=== PATIENT | female | born 1965 | race Caucasian/White ===

== ENCOUNTER 2018-05-19 06:04 | Observation (INO) | payer SELFPAY ==
[2018-05-19] MEDS ORDERED: NS 0.9% 1000 ML** 1,000 ML IV ONE ×2 (06:07→09:06)
[2018-05-19] MEDS ORDERED: Ondansetron INJ* 2 MG/ML VIAL IV ONE (06:07)
[2018-05-19] MEDS ORDERED: Ketorolac INJ* 30 MG/ML 1 ML VIAL IV PUSH ONE (06:11)
--- NOTE | 2018-05-19 06:12 | ED ---
Back Pain - HPI Summary HPI Summary: Pt. is a 52 y.o female who presents to the ER for left flank pain and vomiting that started acutely this morning. Pt. states she has passed kidney stones in the past and symptoms are similar today. Pt. notes pain to left flank that radiates to pelvis. She denies dysuria, hematuria, fever, CP, SOB. Hx of hypothyroidism. Sxs are moderate in severity. No current modifying factors. - History of Current Complaint Stated Complaint: FLANK PAIN Time Seen by Provider: 05/19/18 06:06 Hx Obtained From: Patient Hx Last Menstrual Period: 2 weeks ago Pain Intensity: 9 - Allergies/Home Medications Allergies/Adverse Reactions: Allergies Allergy/AdvReac Type Severity Reaction Status Date / Time No Known Allergies Allergy Verified 12/02/16 09:37 PMH/Surg Hx/FS Hx/Imm Hx Previously Healthy: Yes Endocrine/Hematology History: Reports: Hx Thyroid Disease - Hypothyroid Denies: Hx Diabetes Cardiovascular History: Denies: Hx Hypertension, Hx Pacemaker/ICD Respiratory History: Denies: Hx Asthma, Hx Chronic Obstructive Pulmonary Disease (COPD) GI History: Denies: Hx Ulcer History: Denies: Hx Dialysis, Hx Renal Disease Musculoskeletal History: Reports: Hx Rheumatoid Arthritis Sensory History: Denies: Hx Hearing Aid Psychiatric History: Denies: Hx Panic Disorder - Cancer History Hx Chemotherapy: No Hx Radiation Therapy: No - Surgical History Surgery Procedure, Year, and Place: TUBAL LIGATION; SEBASTIOUS CYST REMOVAL FROM HEAD Infectious Disease History: No Infectious Disease History: Denies: Hx Hepatitis, Hx Human Immunodeficiency Virus (HIV), Traveled Outside the [place] in Last 30 Days - Family History Known Family History: Positive: Non-Contributory - Social History Occupation: Employed Full-time Lives: Alone Substance Use Type: Reports: None Review of Systems Constitutional: Negative Negative: Fever, Chills Cardiovascular: Negative Negative: Chest Pain Respiratory: Negative Negative: Shortness Of Breath Positive: Abdominal Pain, Vomiting, Nausea. Negative: Diarrhea Genitourinary: Negative Neurological: Negative All Other Systems Reviewed And Are Negative: Yes Physical Exam Triage Information Reviewed: Yes Vital Signs On Initial Exam: Initial Vitals Temp Pulse Resp BP Pulse Ox 97.9 F 109 20 177/103 97 05/19/18 06:09 05/19/18 06:09 05/19/18 06:09 05/19/18 06:05/19/18 06:09 Vital Signs Reviewed: Yes Appearance: Positive: Pain Distress - Pt. sitting u pin bed, appears uncomfortable but nontoxic. Skin: Positive: Warm, Dry Head/Face: Positive: Normal Head/Face Inspection Eyes: Positive: Normal, EOMI Neck: Positive: Supple Respiratory/Lung Sounds: Positive: Clear to Auscultation, Breath Sounds Present Cardiovascular: Positive: Normal, RRR Abdomen Description: Positive: Other: - Abd. is soft with tenderness to LLQ and RUQ. No rebound tenderness or guarding. Left CVA tenderness. Neurological: Positive: Normal, CN Intact II-III Psychiatric: Positive: Affect/Mood Appropriate Diagnostics - Vital Signs Vital Signs Temp Pulse Resp BP Pulse Ox 05/19/18 06:09 97.9 F 109 20 177/103 97 - Laboratory Result Diagrams: 05/19/18 06:11 05/19/18 06:12 Lab Statement: Any lab studies that have been ordered have been reviewed, and results considered in the medical decision making process. Back Pain Course/Dx - Course Course Of Treatment: Pt. presenting with acute onset flank pain and N/V. Suspect obstructing calcus. Afebrile. HTN. Pt. started on IV fluids, antiemetics and analgesics. Pending labs, urine and CT scan. CT abd/pelvis per radiology: IMPRESSION: 1. There is a 6 mm calculus was noted in the proximal left ureter with. associated moderate left-sided hydronephrosis and perinephric fat stranding. 2. There is a 1.2 cm calcification noted overlying the tail of the pancreas,. findings may represent a splenic artery aneurysm. Recommend CTA of the abdomen. for further evaluation. Labs show leukocytosis of 22k. Mild chronic renal insufficiency. U/A is contaminated but does show bacteria, WBCs, RBCs. Given WBC and CT scan concerned for infected calculus. IV rocephin started. I spoke with urologist, Dr. Wilson, who plans to take pt. to OR shortly for stent placement. He would like pt. observed over night by hospitalist. I spoke with Dr. Hammer who accepts pt. for admission. Pt.'s pain has been well controlled in ED. Transferred to OR stable. - Diagnoses Differential Diagnosis/HQI/PQRI: Positive: Renal Colic, Strain, Sprain Provider Diagnoses: Urolithiasis, Leukocytosis Discharge - Sign-Out/Discharge Documenting (check all that apply): Patient Departure Patient Received Moderate/Deep Sedation with Procedure: No - Discharge Plan Condition: Stable Disposition: ADMITTED TO [facility] Referrals: Oly Duran MD [Primary Care Provider] - - Billing Disposition and Condition Condition: STABLE Disposition: Admitted to [facility]
[2018-05-19] MEDS ORDERED: Morphine VIAL* 10 MG/ML 1 ML VIAL IV ONE (06:16)
[2018-05-19 06:19] LABS: Hematocrit 40 % (35-47); Hemoglobin 13.2 g/dl (12.0-16.0); Mean Corpuscular HGB Conc 33 g/dl (31-36); Mean Corpuscular Hemoglobin 30 pg (27-31); Mean Corpuscular Volume 90 fL (80-97); Platelet Count 339 10^3/ul (150-450); Red Blood Count 4.44 10^6/ul (4.00-5.40); Red Cell Distribution Width 15 % (10.5-15); White Blood Count 22.7 10^3/ul (3.5-10.8)
[2018-05-19 06:48] LABS: Albumin 4.7 g/dL (3.2-5.2); Albumin/Globulin Ratio 1.4 (1-3); BUN/Creatinine Ratio 10.9 (8-20); Calcium 9.4 mg/dL (8.6-10.3); EGFR African American 52.6 (>60); EGFR Non-African American 43.5 (>60); Globulin 3.3 g/dL (2-4); Potassium 3.6 mmol/L (3.5-5.0); Total Bilirubin 0.6 mg/dL (0.2-1.0)
[2018-05-19 06:52] LABS: ABS Basophils 0.2 10^3/ul (0-0.2); ABS Eosinophils 0 10^3/ul (0-0.6); ABS Lymphocytes 0.7 10^3/ul (1.0-4.8); ABS Monocytes 0.6 10^3/ul (0-0.8); ABS Neutrophils 21.2 10^3/ul (1.5-7.7); ABS Nucleated RBC 0 10^3/ul; Eosinophil % 0 %; Lymphocyte % 3.1 %; Nucleated Red Blood Cells % 0
[2018-05-19] MEDS ORDERED: cefTRIAXone(*) 1 GM in NS 0.9% 50 ML* 50 ML IVPB ONE (08:07)
[2018-05-19 08:52] LABS: Urine Appearance Cloudy; Urine Bacteria 1+ (Absent); Urine Bilirubin Negative (Negative); Urine Blood 1+ (Negative); Urine Color Straw; Urine Glucose Negative (Negative); Urine Ketones Negative (Negative); Urine Nitrite Negative (Negative); Urine Protein Negative (Negative); Urine Red Blood Cell 3+(>10/hpf) (Absent); Urine Specific Gravity 1.011 (1.010-1.030); Urine Squamous Epithelial Cell Present (Absent); Urine Urobilinogen Negative (Negative); Urine White Blood Cell 3+(>20/hpf) (Absent)
[2018-05-19] MEDS ORDERED: Iohexol 180 (CONTRAST) 10 ML SDV IV ONE (10:40)
[2018-05-19] MEDS ORDERED: Ondansetron INJ* 2 MG/ML VIAL IV PRN (10:41)
[2018-05-19] MEDS ORDERED: PROCHLORPERAZINE INJ 5 MG/ML 2 ML VIAL IV PRN (11:01)
[2018-05-19] MEDS ORDERED: fentaNYL* 50 MCG/ML 2 ML VIAL (100 MCG VIAL) IV PRN (11:01)
[2018-05-19] MEDS ORDERED: Scopolamine 1.5 mg* PATCH TRANSDERM PRN (11:01)
[2018-05-19] MEDS ORDERED: DiMENhydriNATE IV* 50 MG/ML VIAL IV PUSH PRN (11:01)
[2018-05-19] MEDS ORDERED: Naloxone* 0.4 MG/ML 1 ML VIAL IV PRN (11:01)
[2018-05-19] MEDS ORDERED: Morphine VIAL* 4 MG/ML VIAL (1 ml vial) IV PRN (11:01)
[2018-05-19] MEDS ORDERED: oxyCODONE/Acetamin 5/325 MG* TAB PO PRN (11:01)
[2018-05-19] MEDS ORDERED: Midazolam* 1 MG/ML 5 ML VIAL (5 MG) ONE (11:08)
[2018-05-19] MEDS ORDERED: fentaNYL* 50 MCG/ML 2 ML VIAL (100 MCG VIAL) ONE ×2 (11:08→11:14)
[2018-05-19] MEDS ORDERED: Metoprolol Tartrate IV* 1 MG/ML 5 ML VIAL ONE (11:15)
[2018-05-19] MEDS ORDERED: Lidocaine 2% PF * 5 ML VIAL ONE (11:15)
[2018-05-19] MEDS ORDERED: Propofol* 10 MG/ML 20 ML BTL ONE (11:15)
--- NOTE | 2018-05-19 12:28 | HP ---
CC: Dr. Oly Peguero * ADMISSION HISTORY AND PHYSICAL: DATE OF ADMISSION: 05/19/18 PRIMARY CARE PROVIDER: Oly Peguero MD. HEALTHCARE PROXY: Daughter, Sue. CODE STATUS: Full. HISTORY OBTAINED: From interview with the patient, review of past medical records. RELIABILITY: Very good. CHIEF COMPLAINT: Left flank pain. HISTORY OF PRESENT ILLNESS: This is a 52-year-old female with past medical history of kidney stones which have required stents; last time in early , who had been in her usual state of health until approximately 11 p.m. the night prior to presentation, developed stabbing pain in her left flank associated with nausea and vomiting, but no chest pain or shortness of breath. She took no medications for relief; however, the pain increased in severity throughout the night. Because it did not resolve and had worsened throughout the night, presented to the emergency room. She noticed no dysuria, but increased urinary frequency for 2 days associated with urinary hesitancy. She notes 1 day of malodorous urine, but no fevers or sweats. She does endorse shaking, chills/ rigors the morning prior to presentation. At baseline, she is quite active. 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 She never has any chest pain or shortness of breath with her heavy physical activity. She has never had any complications with anesthesia with her past removal of sebaceous cysts of her head as well as tubal ligation. Seen by this author. Only complaint is left flank pain, which is relatively better controlled in the emergency room after receipt of pain medication. PAST MEDICAL HISTORY: Includes: 1. Rheumatoid arthritis. 2. Kidney stones, status post stents, last in . 3. Hypothyroidism. 4. Seasonal allergies. 5. Tubal ligations. 6. Sebaceous cysts removal on her head. MEDICATIONS: 1. Synthroid 225 mcg per day. 2. She takes low-dose iron. 3. She takes hydrocodone p.r.n., approximately once every several weeks. 4. She takes [id number] Flonase, turmeric, and vitamin D. ALLERGIES: No known drug allergies. FAMILY HISTORY: Sister with breast cancer who is . Another sister a survivor of breast cancer. She has a maternal aunt with ovarian cancer and a maternal grandmother with ovarian cancer and she has a cousin who has tested positive for BRCA2. Patient has declined testing for BRCA in the past, but is aware of its consequences. SOCIAL HISTORY: No history of tobacco. Drinks approximately 1 to 2 alcoholic beverages per week. She is self-employed. REVIEW OF SYSTEMS: As per HPI. Otherwise, all other systems are negative. PHYSICAL EXAMINATION GENERAL: Well appearing, sitting up in bed, interactive, pleasant, in no apparent distress. VITAL SIGNS: In the emergency room, heart rate 104, blood pressure 133/80, respiratory rate is 18, she is 99% on room air, T-max is 99.8. HEENT: Oropharynx is clear. She has dry mucous membranes. Her sclerae are anicteric. NECK: She has non-elevated JVD. She has no supraclavicular or cervical lymphadenopathy. LUNGS: Clear, except for mild rales in her right base. HEART: She has a tachycardic heart rate with regular rhythm. ABDOMEN: Soft and nontender. She has left costovertebral angle tenderness. EXTREMITIES: Warm and well perfused without clubbing, cyanosis, or edema. She has less than 2 second cap refill. NEUROLOGIC: She is alert and oriented x3. Her cranial nerves II through XII are intact. PSYCH: She has no apparent anxiety, agitation, or depression. DIAGNOSTIC STUDIES/LAB DATA: Labs reviewed: White blood cell count is 22.7; which is 93.4% neutrophils, hemoglobin is 13.2, platelets are 339. Her BUN is 14, her creatinine is 1.28, glucose 130. Urine is positive for blood, leuk esterase, white blood cells, red blood cells, squamous epithelial cells, and bacteria. Data reviewed: CT of abdomen and pelvis, impression: There is a 6 mm calculus that was noted in the proximal left ureter with associated moderate left-sided hydronephrosis and perinephric fat stranding. There is a 1.2 calcification noted over the tail of the pancreas. ASSESSMENT AND PLAN: This is a 52-year-old female with past medical history as outlined above including rheumatoid arthritis as well as history of kidney stones requiring stents presenting with pyelonephritis associated with hydronephrosis. Pyelonephritis and hydronephrosis in the setting of obstructing stone, likely infected. Received ceftriaxone. Will continue daily. Patient en route to operating room with Dr. Wilson immediately after my conversation with her for definitive therapy. Additional fluid resuscitation based on what she receives in the operating room as well as results from findings. Pain control p.r.n. per surgical team after procedure; otherwise, I am happy to prescribe as necessary. Hypothyroidism, continue home Synthroid dose. Incidentally noted pancreatic lesion, recommend potential followup if necessary based by primary care provider as an outpatient. Acute kidney injury, unclear if acute or chronic. Previous labs do show decreased GFR; however, unclear circumstances surrounding both lab tests. Continue to trend tomorrow. DVT prophylaxis, SCDs prior to operating room. Code status is full. [id number]/[facility] #: [id number] MTDD
--- NOTE | 2018-05-19 13:00 | OP ---
CC: Dr. Oly Peguero * DATE OF OPERATION: 05/19/18 - ROOM #334 DATE OF : 61 SURGEON: Dr. Wilson. ANESTHESIOLOGIST: Dr. Agapito Quesada. ANESTHESIA: General. PRE-OP DIAGNOSES: 1. Left renal colic. 2. Proximal left ureteral calculus (7 mm). 3. Urinary tract infection. POST-OP DIAGNOSES: 1. Left renal colic. 2. Proximal left ureteral calculus (7 mm). 3. Urinary tract infection. OPERATIVE PROCEDURES: 1. Cystoscopy. 2. Left retrograde pyelography. 3. Placement of left ureteral stent (6-Tunisian). INDICATION FOR PROCEDURE: Mrs. Nur is a 52-year-old white female who gives past history of renal calculus disease and had required a right ureteroscopy 14 years ago. She was doing fine until early this morning when she presented to the emergency room with symptoms of left renal colic. A noncontrast CT showed a 6 to 7 mm calculus in the proximal left ureter, just distal to the ureteropelvic junction, associated with mild hydronephrosis and stranding around the left kidney suggestive of urinary extravasation. Her white count was elevated at 23,000 with a shift. Creatinine was 1.3. Urinalysis was positive for infection. She, however, was afebrile. Patient was given 1 g of ceftriaxone in the emergency room and is being taken on an urgent basis for placement of left ureteral stent. PATHOLOGY AT CYSTOSCOPY: The bladder mucosa looked normal. There were no changes of cystitis. No suspicious bladder lesions were seen. There was a single orthotopic orifice on each side and the orifices looked normal. At fluoroscopy, there was a faint area of calcification in the area of the proximal left ureter. Following placement of the open-ended catheter in the left renal pelvis, a concentrated somewhat cloudy urine was drained. After the hydronephrotic drip slowed down, retrograde pyelography showed no hydronephrosis. DESCRIPTION OF PROCEDURE: After successful general anesthesia, patient was placed in the lithotomy position and was prepped and draped for a cystoscopy. Cystoscopy was performed. The bladder was inspected and the above findings were noted. A flexible tip hybrid guidewire was then introduced into the left orifice and positioned without difficulty in the area of the renal pelvis. A 5-Tunisian open - ended catheter was fed on top of the guidewire and positioned in the area of the renal pelvis. Hydronephrotic drip was noted and urine was collected and sent for culture and sensitivity. After the hydronephrotic drip slowed down, a total of 3 to 4 cc of non-diluted contrast was injected delineating the collecting system. A size 6-Tunisian stent was then placed with the proximal end coiling in the renal pelvis and the distal end coiling inside the bladder. There was good drainage of contrast from the kidney and no extravasation. Patient tolerated the procedure well and left the operating room in good condition. The plan is to keep the patient overnight for observation to make sure she does not develop any sepsis. KUB will be obtained before her discharge. She will be brought back in for definitive treatment of the stone. [id number]/[facility] #: [id number] MTDD
[2018-05-19] MEDS: Lactated Ringers 1000 ML Bag* 1,000 ML IV SCH ×2 (13:24→20:20)
[2018-05-19] MEDS: Acetaminophen TAB* 325 MG PO PRN (18:14)
[2018-05-19] MEDS: cefTRIAXone(*) 1 GM in NS 0.9% 50 ML* 50 ML IVPB SCH (20:22)
[2018-05-20] MEDS: Acetaminophen TAB* 325 MG PO PRN ×3 (03:16→12:42)
[2018-05-20] MEDS: Lactated Ringers 1000 ML Bag* 1,000 ML IV SCH (03:17)
[2018-05-20 04:59] LABS: Hematocrit 37 % (35-47); Hemoglobin 11.9 g/dl (12.0-16.0); Mean Corpuscular HGB Conc 32 g/dl (31-36); Mean Corpuscular Hemoglobin 29 pg (27-31); Mean Corpuscular Volume 90 fL (80-97); Mean Platelet Volume 8.9 fL (7.4-10.4); Platelet Count 273 10^3/ul (150-450); Red Blood Count 4.07 10^6/ul (4.00-5.40); Red Cell Distribution Width 15 % (10.5-15); White Blood Count 29.4 10^3/ul (3.5-10.8)
[2018-05-20 05:09] LABS: ABS Basophils 0 10^3/ul (0-0.2); ABS Eosinophils 0 10^3/ul (0-0.6); ABS Lymphocytes 1.2 10^3/ul (1.0-4.8); ABS Monocytes 1.5 10^3/ul (0-0.8); ABS Neutrophils 26.6 10^3/ul (1.5-7.7); ABS Nucleated RBC 0 10^3/ul; Eosinophil % 0 %; Lymphocyte % 4.1 %; Nucleated Red Blood Cells % 0
[2018-05-20 05:14] LABS: BUN/Creatinine Ratio 15.2 (8-20); Calcium 8.8 mg/dL (8.6-10.3); EGFR African American 70.7 (>60); EGFR Non-African American 58.5 (>60); Potassium 3.8 mmol/L (3.5-5.0)
[2018-05-20] MEDS: Levothyroxine TAB* 100 MCG TAB PO SCH (06:07)
[2018-05-20] MEDS: Levothyroxine TAB* 125 MCG TAB PO SCH (06:07)
[2018-05-20] MEDS: Cholecalciferol TAB* 1000 UNITS PO SCH (08:18)
[2018-05-20] MEDS: cefTRIAXone(*) 1 GM in NS 0.9% 50 ML* 50 ML IVPB SCH ×2 (08:18→20:43)
--- NOTE | 2018-05-20 08:47 | PN ---
Subjective Date of Service: 05/20/18 Interval History: MATHIAS this AM - notes she is about to start period and this usually coincides OOB to bathroom Feels well Flank pain improved Objective Active Medications: Acetaminophen (Tylenol Tab*) 650 mg PO Q4H PRN PRN Reason: FEVER/PAIN Last Admin: 05/20/18 08:19 Dose: 650 mg Cholecalciferol (Vitamin D Tab*) 2,000 units PO DAILY [facility] Last Admin: 05/20/18 08:18 Dose: 2,000 units Ceftriaxone Sodium 1 gm/ (Sodium Chloride) 50 mls @ 200 mls/hr IVPB 0900,2100 [facility] Last Admin: 05/20/18 08:18 Dose: 200 mls/hr Levothyroxine Sodium (Synthroid Tab*) 125 mcg PO DAILY@0600 [facility] Last Admin: 05/20/18 06:07 Dose: 125 mcg Levothyroxine Sodium (Synthroid Tab*) 100 mcg PO DAILY@0600 [facility] Last Admin: 05/20/18 06:07 Dose: 100 mcg Ondansetron HCl (Zofran Inj*) 4 mg IV Q4H PRN PRN Reason: NAUSEA/VOMITING Pharmacy Profile Note (Scopolamine Patch Remove*) 1 note PATCH OFF Q72H ONE Stop: 05/22/18 11:03 Vital Signs - 8 hr 05/20/18 05/20/18 03:21 07:33 Temperature 97.9 F 98.8 F Pulse Rate 71 78 Respiratory 16 16 Rate Blood Pressure 123/78 148/83 (mmHg) O2 Sat by Pulse 98 98 Oximetry Oxygen Devices in Use Now: None Appearance: NAD Eyes: No Scleral Icterus Ears/Nose/Mouth/Throat: NL Teeth, Lips, Gums, Clear Oropharnyx Neck: NL Appearance and Movements; NL JVP Respiratory: Symmetrical Chest Expansion and Respiratory Effort, Clear to Auscultation Cardiovascular: NL Sounds; No Murmurs; No JVD, RRR Abdominal: NL Sounds; No Tenderness; No Distention, - - mild left CVAT Skin: No Rash or Ulcers Neurological: Alert and Oriented x 3 Result Diagrams: 05/20/18 04:44 05/20/18 04:44 Assess/Plan/Problems-Billing Assessment: 52 yo F h/o RA, hypothyroidism p/w left hydro/pyelonephritis in setting of nephrolithiasis s/p left stent placement - Patient Problems (1) Acute kidney injury Comment: resolved d/c fluids (2) Pyelonephritis Comment: s/p left ureteral stent 05/19 c/w CTX check CBC tomorrow checl blood cxs (3) Headache Comment: improving with tylenol (4) Hypothyroid Comment: cw home dose synthroid (5) DVT prophylaxis Comment: low risk ambulate ad vini
[2018-05-20] MEDS ORDERED: Levothyroxine TAB* 100 MCG TAB PO SCH (09:00)
[2018-05-20] MEDS ORDERED: HYDROcodone/ACETAMIN 5-325 MG* 1 TAB PO ONE (19:14)
[2018-05-21] MEDS: Acetaminophen TAB* 325 MG PO PRN ×2 (03:43→08:54)
[2018-05-21 05:52] LABS: ABS Basophils 0.1 10^3/ul (0-0.2); ABS Eosinophils 0 10^3/ul (0-0.6); ABS Monocytes 0.9 10^3/ul (0-0.8); ABS Neutrophils 11.9 10^3/ul (1.5-7.7); ABS Nucleated RBC 0 10^3/ul; Eosinophil % 0.2 %; Hematocrit 36 % (35-47); Lymphocyte % 7.4 %; Mean Corpuscular HGB Conc 33 g/dl (31-36); Mean Corpuscular Hemoglobin 30 pg (27-31); Mean Corpuscular Volume 89 fL (80-97); Mean Platelet Volume 8.8 fL (7.4-10.4); Nucleated Red Blood Cells % 0; Platelet Count 252 10^3/ul (150-450); Red Blood Count 4.07 10^6/ul (4.00-5.40); Red Cell Distribution Width 15 % (10.5-15); White Blood Count 13.9 10^3/ul (3.5-10.8)
[2018-05-21] MEDS: Levothyroxine TAB* 100 MCG TAB PO SCH (06:20)
[2018-05-21] MEDS: Levothyroxine TAB* 125 MCG TAB PO SCH (06:20)
[2018-05-21 06:41] LABS: BUN/Creatinine Ratio 14.4 (8-20); Calcium 8.7 mg/dL (8.6-10.3); EGFR Non-African American 65.2 (>60); Potassium 3.3 mmol/L (3.5-5.0)
[2018-05-21] MEDS: Cholecalciferol TAB* 1000 UNITS PO SCH (08:54)
[2018-05-21] MEDS: cefTRIAXone(*) 1 GM in NS 0.9% 50 ML* 50 ML IVPB SCH (09:27)
[2018-05-21 12:44] VITALS: BP 134/79
--- NOTE | 2018-05-21 21:51 | DS ---
CC: Dr. Oly Peguero; Dr. Wilson * DISCHARGE SUMMARY: DATE OF ADMISSION: 05/19/18 DATE OF DISCHARGE: 05/21/18 PRIMARY CARE PROVIDER: Dr. Oly Peguero. UROLOGIST: Dr. Wilson DISCHARGE DIAGNOSES: 1. Sepsis, present on admission. 2. E. coli pyelonephritis. 3. Acute kidney injury secondary to dehydration and pyelonephritis. SECONDARY DIAGNOSES: 1. Rheumatoid arthritis. 2. Nephrolithiasis. 3. Hypothyroidism. 4. Seasonal allergies. 5. Status post tubal ligation. 6. Status post sebaceous cyst removal. MEDICATION LIST: 1. Acetaminophen 650 mg p.o. q.4 hours p.r.n. pain or fever. 2. Cholecalciferol 2000 units p.o. daily. 3. Hydrocodone/acetaminophen 5/325 mg, 1 tablet p.o. q.4 hours p.r.n. pain. 4. Levothyroxine 225 mcg p.o. daily. 5. Turmeric 500 mg p.o. b.i.d. New medications: Sulfamethoxazole-trimethoprim 800/160, one tablet p.o. b.i.d. for 10 days. HOSPITAL COURSE: Mrs. Nur is a 52-year-old lady with past medical history as stated above who presented to the emergency room with complaints of left flank pain associated with nausea and vomiting. Prior to admission she also developed dysuria and urinary frequency. She denied a fever, but on admission her CBC revealed a leukocytosis of 22.7 and an abnormal urinalysis. A CT of the abdomen and pelvis was performed and showed a 6-mm calculus in the proximal left ureter with associated moderate left-sided hydronephrosis and perinephric fat stranding. There was an incidental finding of a 1.2 cm calcification overlying the tail of the pancreas that may represent a splenic artery aneurysm. CTA of the abdomen was recommended for further evaluation and this can be performed as outpatient. The patient was seen in consultation by Urology, Dr. Wilson, and she was taken to the operating room where she underwent cystoscopy with left retrograde pyelography and placement of left ureteral stent. The patient did well on the postop period. Her left flank pain is much improved as well as her urinary symptoms. The patient did have complaints of abdominal cramping and headache, but she thought those were secondary to her period. The patient had improvement of her leukocytosis and her WBC is down to 13.9 on the day of discharge. Her creatinine was 1.28 on admission and is down to 0.9 on the day of discharge. As she is going to be on a longer course of Bactrim, the patient was advised to have BMP checked on 05/24/18 to monitor her renal function and potassium. The results will be sent to Dr. Peguero and Dr. Wilson. The patient was educated about symptoms that would prompt her return to the emergency room. She is medically stable to be discharged home today, to follow up with Dr. Wilson next week. PHYSICAL EXAMINATION: Vital Signs: Temperature 98.3, heart rate is 83, respiratory rate is 16, oxygen saturation is 99% on room air, blood pressure is 134/79. General: The patient is a pleasant, middle-aged lady, sitting up in bed, in no acute distress. CVS: Normal S1 and S2. Regular rate and rhythm. Chest: Breath sounds bilaterally, with no added sounds. Abdomen: Soft, nontender, nondistended. Bowel sounds were present. There is minimal left CVA tenderness. Neuro: She is alert and oriented x3, and she moves all 4 extremities. DIET: Regular diet. ACTIVITY: As tolerated. DISPOSITION: To home. STATUS WHILE IN THE HOSPITAL: Observation. Please keep in mind this is a summarized version of this patient's hospital stay. If you need more information, please feel free to call me at [phone] or please obtain the full medical records. TIME SPENT: Approximately 45 minutes were spent to complete this discharge. [id number]/[facility] #: [id number] LI
[2018-05-22] MEDS ORDERED: Scopolamine PATCH Remove* 1 NOTE MISC PATCH OFF ONE (11:02)
== END 2018-05-21 15:30 | disposition home or self-care (01) ==
LOC: ED 06:04 → SSU 11:19
PROVIDERS: ADMIT Internal Medicine; ATTEND Internal Medicine
DX: A41.9 Sepsis, unspecified organism (principal); N12 Tubulo-interstitial nephritis, not specified as acute or chronic; N20.1 Calculus of ureter; N39.0 Urinary tract infection, site not specified; Z87.442 Personal history of urinary calculi; N17.9 Acute kidney failure, unspecified; E86.0 Dehydration; M06.9 Rheumatoid arthritis, unspecified; N20.0 Calculus of kidney; E03.9 Hypothyroidism, unspecified; J30.2 Other seasonal allergic rhinitis; Z98.51 Tubal ligation status; Z48.817 Encounter for surgical aftercare following surgery on the skin and subcutaneous tissue; R10.84 Generalized abdominal pain; N23 Unspecified renal colic
CPT/HCPCS: 36415; 74018; 74176; 74420; 80048; 80053; 81003; 81015; 83690; 85025; 87040; 87077; 87086; 87186; 96374; 96375; 96376; 99284; A9270-GY; C1876; G0378; J0696; J1885; J2250; J2270; J2405; J2704; J3010; J3490